=== PATIENT | female | born 1965 | race Caucasian/White ===

== ENCOUNTER → 2018-03-02 15:36 | Outpatient (CLI) | payer OTHER, SELFPAY ==
--- NOTE | 2018-03-02 15:40 | DI.RAD.S_ITS ---
PROCEDURE: XR LUMBAR SPINE 2-3V INDICATIONS: left buttock pain for over 1 month TECHNIQUE: 3 views of the lumbar spine were acquired. COMPARISON: None. FINDINGS: Bones: 5 [id number] vertebrae are present. There is moderate dextroconvex scoliosis. Degenerative disc disease L4-5 and possibly L5-S1. Facet sclerosis L4-5 and L5-S1. No vertebral body compression fractures. No suspicious bony lesions. Sacrum and sacroiliac joints appear maintained. Soft tissues: Overlying bowel gas pattern is normal. No suspicious soft tissue calcifications. IMPRESSION: 1. Scoliosis. 2. Discopathy and facet arthropathy L4-5 and L5-S1. Dictated by: Gordo Greenberg M.D. on 03/02/2018 at 16:07 Approved by: Gordo Greenberg M.D. on 03/02/2018 at 16:10
--- NOTE | 2018-03-02 15:40 | DI.MRI.S_ITS ---
PROCEDURE: MR LUMBAR SPINE WO CON INDICATIONS: left buttock pain TECHNIQUE: Noncontrast sagittal T1 spin echo and T2 fast echo, sagittal STIR, axial T1 and T2 fast spin echo through the lumbar spine. In cases with scoliosis, additional coronal T2 fast spin echo may be performed. COMPARISON: [facility], CR, XR LUMBAR SPINE 2-3V, 03/02/2018, 15:22. FINDINGS: Image quality: Excellent. Alignment and Curvature: 5 lumbar type vertebral wires are present by plain film. Mild rightward curvature of the mid/upper lumbar spine. Bone Marrow: Marrow is of normal overall signal. No acute vertebral body compression fractures. Mild reactive signal within the endplates adjacent to the L4-L5 and L5-S1 intervertebral discs. Spinal Cord: Conus medullaris terminates at the L1-L2 disc space level. Visualized cord demonstrates normal signal and size. There is a small lipoma of the filum terminalis, which does not significantly contribute to canal, nor foraminal stenosis. Paraspinous Soft Tissues: No paravertebral masses. L1-L2: Normal appearance. L2-L3: Normal appearance. L3-L4: Disc desiccation and diffuse disc bulge with small superimposed broad-based left far lateral protrusion. Bilateral facet hypertrophy. Mild canal stenosis. Mild left foraminal stenosis. No right foraminal stenosis. L4-L5: Disc height loss and desiccation, as well as diffuse disc bulge, with superimposed left paracentral protrusion. Bilateral facet hypertrophy. Mild canal stenosis. Moderate right and mild left foraminal stenosis. Mild posterior deviation of the left L5 nerve root within the lateral recess. L5-S1: Disc desiccation and diffuse disc bulge with superimposed right paracentral protrusion. Bilateral facet hypertrophy. Epidural lipomatosis. Mild canal stenosis. Mild right foraminal stenosis. No left foraminal stenosis. IMPRESSION: 1. Multilevel degenerative disc and facet disease. 2. Mild multilevel canal stenoses. 3. Multilevel foraminal stenoses, worst on the right at L4-L5 where there is moderate foraminal stenosis. 4. Mild impingement upon the left L5 nerve root at the L4-L5 disc space level; recommend correlation with clinical symptoms to ascertain relevance of this finding. Dictated by: Franklin De Paz M.D. on 03/02/2018 at 16:19 Approved by: Franklin De Paz M.D. on 03/02/2018 at 16:22
== END ==
PROVIDERS: Family Provider Family Medicine; PCP Family Medicine; Visit Provider Family Medicine
DX: M51.36 Other intervertebral disc degeneration, lumbar region (principal); M47.816 Spondylosis without myelopathy or radiculopathy, lumbar region; M48.061 Spinal stenosis, lumbar region without neurogenic claudication
CPT/HCPCS: 72100; 72148

== ENCOUNTER 2018-04-24 13:57 | Outpatient (CLI) | payer OTHER, SELFPAY ==
[2018-04-24] VITALS (8 sets, daily range): BP systolic 111–136; BP diastolic 70–91; PULSE 61–72; RESP 16–18; TEMP 36.3; O2SAT 99–100
--- NOTE | 2018-04-24 13:58 | DI.RAD.S_ITS ---
PROCEDURE: PAIN L/S TRANSFORAMINAL INJECT INDICATIONS: RADICULOPATHY FINDINGS: Fluoroscopic spot filming was performed to verify placement of spinal needles at the left L4-5 level(s), as labeled on the films. Appropriate location(s) of the needle tip(s) was confirmed by injection of iodinated contrast. IMPRESSION: Successful left L4-5 transforaminal epidural needle tip localization for subsequent steroid injection. Dictated by: Sloan Alfred M.D. on 04/25/2018 at 10:05 Approved by: Sloan Alfred M.D. on 04/25/2018 at 10:06
[2018-04-24] MEDS: methylPREDNISolone acetate 80 MG/ML VIAL INJ (15:23)
[2018-04-24] MEDS: IOPAMIDOL 15 ML VIAL 3 ML INJ (15:23)
[2018-04-24] MEDS: DEXAMETHASONE 10 MG/ML VIAL 20 MG INJ (15:23)
[2018-04-24] MEDS: BUPIVACAINE 0.25% (PF) 30 ML VIAL INJ (15:23)
--- NOTE | 2018-04-24 15:34 | P.PCN_ITS ---
Procedures Date/Time Date of procedure: 04/24/18 Time of procedure: 15:29 General Procedure description: PREOP DIAGNOSIS 1. FORMAINAL STENOSIS WITH LE SYMPTOMS POST OP DIAGNOSIS 1. FORMAINAL STENOSIS WITH LE SYMPTOMS PROCEDURES 1. FLUOROSCOPICALLY GUIDED CONTRAST CONTROLLED TRANSFORAMINAL EPIDURAL STEROID INJECTION - LEFT L4/5 PHYSICIAN: Philip Jacob DO INDICATIONS: Shiela is referred by for treatment of Foraminal Stenosis with Left LE Symptoms FINDINGS Foraminal Nerve Root Compression secondary to disc disease and facet hypertrophy DESCRIPTION OF PROCEDURE: Following denial of allergy and review of potential side effects and complications, including, but not necessarily limited to, infection, allergic reaction, local tissue breakdown, stroke, temporary or permanent nerve injury, paralysis, and possible , the patient indicated that the patient understood and agreed to proceed. An informed consent document was signed by the patient, witnessed by a nurse, and placed in the patient's chart. Additionally, other treatment options including medications, modalities, and physical therapy were reviewed with the patient. After review of previous anaesthesic history and IV conscious sedation the patient was deemed safe to proceed with todays procedure with IV conscious sedation as ASA class II designation. Safety time-out was performed to confirm patient ID, procedure to be performed and site of procedure. IV sedation was accomplished with a combination of 3mg of Versed was administered by the RN after DO order, titrated to patient comfort during the course of the procedure while the patient remained responsive to all verbal commands In the prone position following sterile prep and drape of the lumbar region, the left L4/5 posterior neuroforamen was identified fluoroscopically. The skin was anesthetized via a 25-gauge 1.5-inch needle with 1% lidocaine solution. At this point, a 25-gauge 3.5-inch spinal needle was atraumatically introduced and advanced under fluoroscopic guidance through the posterior left L4/5 neuroforamen to approximately the anterior aspect of the canal. Depth was confirmed on lateral view. Following negative aspiration, injection of approximately 1.5 cc of Isovue 200 under live fluoroscopy in the AP view confirmed excellent flow along the nerve root, into the epidural space without vascular or intrathecal uptake observed Radiological data, including multiple fluoroscopic views of the lumbosacral spine, reveal a spinal needle at the left L4/5 posterior neuroforamen. Subsequent views show flow of contrast material flowing superiorly and inferiorly along the nerve root confirming epidural flow. Subsequently, a test dose of 1.5 cc of 1% lidocaine solution was administered and patient was observed for two minutes for signs or symptoms of complications , including abdominal pain, shortness of breath, bilateral upper or lower extremity weakness, nausea and vomiting, prior to steroid injection. At this point, a total of 3 cc or 20 mg of dexamethasone and 80mg Depo Medrol was injected without incident. The patient tolerated the procedure well the signs or symptoms of complications prior to transfer to the recovery area for further monitoring. She was then transferred to the recovery area where they were observed for an appropriate time after the injection. The patient reported a VAS score of 7 prior to the procedure and a post- procedure VAS of 0. Total Fluoroscopy Time: 20.9 seconds Total Conscious Sedation Time: 24min POST OP INSTRUCTIONS The patient was provided a Pain Log to continue to record their response to the target-specific procedure prior to follow-up visit with their referring physician. Additionally, specific post-injection care instructions and a contact number to our office were provided if concerns arise regarding possible complications associated with the procedure are suspected. Philip Jacob DO Complications: none
[2018-04-24] MEDS: MIDAZOLAM 5 MG/5 ML VIAL IV (15:35)
== END 2018-04-24 16:19 ==
LOC: RAD 13:57
PROVIDERS: PCP Family Medicine; Visit Provider Physical Medicine & Rehabilitation
DX: M47.27 Other spondylosis with radiculopathy, lumbosacral region (principal); M51.16 Intervertebral disc disorders with radiculopathy, lumbar region; M48.061 Spinal stenosis, lumbar region without neurogenic claudication
CPT/HCPCS: 64483; 99152; J1040; J1100; J2250

== ENCOUNTER → 2018-05-01 15:59 | Outpatient (CLI) | payer OTHER, SELFPAY ==
--- NOTE | 2018-05-01 16:01 | DI.RAD.S_ITS ---
PROCEDURE: XR ANKLE LT MIN 3V INDICATIONS: LEFT ANKLE PAIN S/P FALL TECHNIQUE: 3 views of the ankle were acquired. COMPARISON: None. FINDINGS: Bones: There is a minimally displaced, comminuted fracture of the distal fibula. No other fracture. There is likely a bone island within the medial malleolus. Soft tissues: There is marked lateral malleolar soft tissue swelling and a small tibiotalar joint effusion. IMPRESSION: 1. Comminuted, minimally displaced distal fibular fracture with associated soft tissue swelling. 2. Probable medial malleolar bone island. Dictated by: Sophie San M.D. on 05/01/2018 at 17:59 Approved by: Sophie San M.D. on 05/01/2018 at 18:00
== END ==
PROVIDERS: Family Provider Family Medicine; PCP Family Medicine; Visit Provider Family Medicine
DX: S82.832A Other fracture of upper and lower end of left fibula, initial encounter for closed fracture (principal); M25.572 Pain in left ankle and joints of left foot
CPT/HCPCS: 73610

== ENCOUNTER 2018-05-29 13:25 | Outpatient (CLI) | payer OTHER, SELFPAY ==
[2018-05-29] VITALS (12 sets, daily range): BP systolic 81–129; BP diastolic 35–77; PULSE 72–89; RESP 18–20; TEMP 36.2; O2SAT 98–100
--- NOTE | 2018-05-29 13:26 | DI.RAD.S_ITS ---
PROCEDURE: PAIN L/S TRANSFORAMINAL INJECT INDICATIONS: INTERVERTEBRAL DISK DISPLACEMENT FINDINGS: Fluoroscopic spot filming was performed to verify placement of spinal needles at the left L4-5 level(s), as labeled on the films. Appropriate location(s) of the needle tip(s) was confirmed by injection of iodinated contrast. IMPRESSION: Successful left L4-L5 needle tip localization posterior laterally, presumably for epidural steroid injection. Dictated by: Sloan Alfred M.D. on 05/29/2018 at 16:22 Approved by: Sloan Alfred M.D. on 05/29/2018 at 16:23
[2018-05-29] MEDS: MIDAZOLAM 5 MG/5 ML VIAL IV (14:25)
[2018-05-29] MEDS: BUPIVACAINE 0.25% (PF) VIAL 2 ML INJ (14:33)
[2018-05-29] MEDS: IOPAMIDOL 15 ML VIAL 3 ML INJ (14:33)
[2018-05-29] MEDS: methylPREDNISolone acetate 80 MG/ML VIAL INJ (14:34)
[2018-05-29] MEDS: DEXAMETHASONE 10 MG/ML VIAL 20 MG INJ (14:34)
--- NOTE | 2018-05-29 14:42 | P.PCN_ITS ---
Procedures Date/Time Date of procedure: 05/29/18 Time of procedure: 14:42 General Procedure description: PREOP DIAGNOSIS 1. FORMAINAL STENOSIS WITH LE SYMPTOMS POST OP DIAGNOSIS 1. FORMAINAL STENOSIS WITH LE SYMPTOMS PROCEDURES 1. FLUOROSCOPICALLY GUIDED CONTRAST CONTROLLED TRANSFORAMINAL EPIDURAL STEROID INJECTION - LEFT L4/5 PHYSICIAN: Philip Jacob DO INDICATIONS: Shiela is referred by for treatment of Foraminal Stenosis with Left LE Symptoms FINDINGS Foraminal Nerve Root Compression secondary to disc disease and facet hypertrophy DESCRIPTION OF PROCEDURE: Following denial of allergy and review of potential side effects and complications, including, but not necessarily limited to, infection, allergic reaction, local tissue breakdown, stroke, temporary or permanent nerve injury, paralysis, and possible , the patient indicated that the patient understood and agreed to proceed. An informed consent document was signed by the patient, witnessed by a nurse, and placed in the patient's chart. Additionally, other treatment options including medications, modalities, and physical therapy were reviewed with the patient. After review of previous anaesthesic history and IV conscious sedation the patient was deemed safe to proceed with todays procedure with IV conscious sedation as ASA class II designation. Safety time-out was performed to confirm patient ID, procedure to be performed and site of procedure. IV sedation was accomplished with a combination of 3mg of Versed was administered by the RN after DO order, titrated to patient comfort during the course of the procedure while the patient remained responsive to all verbal commands In the prone position following sterile prep and drape of the lumbar region, the left L4/5 posterior neuroforamen was identified fluoroscopically. The skin was anesthetized via a 25-gauge 1.5-inch needle with 1% lidocaine solution. At this point, a 25-gauge 3.5-inch spinal needle was atraumatically introduced and advanced under fluoroscopic guidance through the posterior left L4/5 neuroforamen to approximately the anterior aspect of the canal. Depth was confirmed on lateral view. Following negative aspiration, injection of approximately 1.5 cc of Isovue 200 under live fluoroscopy in the AP view confirmed excellent flow along the nerve root, into the epidural space without vascular or intrathecal uptake observed Radiological data, including multiple fluoroscopic views of the lumbosacral spine, reveal a spinal needle at the left L4/5 posterior neuroforamen. Subsequent views show flow of contrast material flowing superiorly and inferiorly along the nerve root confirming epidural flow. Subsequently, a test dose of 1.5 cc of 1% lidocaine solution was administered and patient was observed for two minutes for signs or symptoms of complications , including abdominal pain, shortness of breath, bilateral upper or lower extremity weakness, nausea and vomiting, prior to steroid injection. At this point, a total of 3 cc or 20 mg of dexamethasone and 80mg Depo Medrol was injected without incident. The patient tolerated the procedure well the signs or symptoms of complications prior to transfer to the recovery area for further monitoring. She was then transferred to the recovery area where they were observed for an appropriate time after the injection. The patient reported a VAS score of 7 prior to the procedure and a post- procedure VAS of 0. Total Fluoroscopy Time: 20.9 seconds Total Conscious Sedation Time: 24min POST OP INSTRUCTIONS The patient was provided a Pain Log to continue to record their response to the target-specific procedure prior to follow-up visit with their referring physician. Additionally, specific post-injection care instructions and a contact number to our office were provided if concerns arise regarding possible complications associated with the procedure are suspected. Philip Jacob DO Complications: none
== END 2018-05-29 15:18 ==
LOC: RAD 13:25
PROVIDERS: Family Provider Family Medicine; PCP Family Medicine; Visit Provider Physical Medicine & Rehabilitation
DX: M48.061 Spinal stenosis, lumbar region without neurogenic claudication (principal); M51.16 Intervertebral disc disorders with radiculopathy, lumbar region; M51.26 Other intervertebral disc displacement, lumbar region; M47.27 Other spondylosis with radiculopathy, lumbosacral region
CPT/HCPCS: 64483; 99152; J1040; J1100; J2250

== ENCOUNTER → 2018-05-29 15:20 | Outpatient (CLI) | payer OTHER, SELFPAY ==
--- NOTE | 2018-05-29 15:21 | DI.MRI.S_ITS ---
PROCEDURE: MR ANKLE LT WO CON INDICATIONS: Left ankle fracture TECHNIQUE: Noncontrast sagittal T1 spin echo and T2 fast spin echo with fat saturation, axial proton density fast spin echo and T2 fast spin echo with fat saturation, coronal T1 spin echo and T2 fast spin echo with fat saturation through the ankle/hindfoot. COMPARISON: [facility], CR, XR ANKLE LT MIN 3V, 05/01/2018, 16:02. FINDINGS: Image quality: Excellent. Bones and joints: There is a mildly displaced fracture of the lateral malleolus inferiorly. Fracture line demonstrates persistent fluid signal with mild edema along the fracture margins. No hindfoot coalitions. No osteochondral injuries of the talar dome. There is a small to moderate size tibiotalar joint effusion. Medial structures: The posterior tibialis, flexor digitorum longus, and flexor hallucis longus tendons are intact. The posterior tibial neurovascular bundle appears normal within the tarsal tunnel, without extrinsic mass effect. The deltoid and spring ligaments appear intact. Lateral structures: The anterior talofibular, calcaneofibular, and posterior talofibular ligaments appear slightly thickened and intermediate in signal intensity with periligamentous edema consistent with sequelae of moderate sprains. There is mild adjacent subcutaneous edema over the lateral malleolus. More superiorly, the anterior and posterior tibiofibular ligaments appear intact, as is the intermalleolar ligament. The tibiofibular syndesmosis is normal in width at 2 mm or less. The peroneus longus and brevis tendons demonstrate normal location and morphology with a small amount of tenosynovial fluid and mild peritendinous edema. Adjacent bony peroneal tubercle and retrotrochlear prominence are normal in size. The sinus tarsi demonstrates preserved fatty signal. There is a lobulated cyst compatible with a ganglion cyst anterolateral to the sinus Tarsi measuring up to 1.2 cm. The calcaneonavicular and calcaneocuboid components of the bifurcate ligament appear intact. The dorsal calcaneocuboid ligament appears intact. Anterior structures: The tibialis anterior, extensor hallucis longus, and extensor digitorum longus tendons appear intact. The dorsal talonavicular ligament appears intact. Posterior and plantar structures: Achilles tendon is intact. There is thickening of the central cord of the plantar fascia consistent with sequelae of plantar fasciitis. No abductor digiti quinti muscle atrophy to suggest Negron neuropathy. IMPRESSION: 1. Mildly displaced fracture of the inferior lateral malleolus. 2. Moderate sprains of the lateral ligaments is described. 3. Small to moderate-sized tibiotalar joint effusion. Dictated by: Daren Rivera M.D. on 05/29/2018 at 16:59 Approved by: Daren Rivera M.D. on 05/29/2018 at 17:03
== END ==
PROVIDERS: Family Provider Family Medicine; PCP Family Medicine; Visit Provider Family Medicine
DX: S82.62XA Displaced fracture of lateral malleolus of left fibula, initial encounter for closed fracture (principal); M25.472 Effusion, left ankle
CPT/HCPCS: 73721

== ENCOUNTER → 2019-10-14 18:39 | Outpatient (CLI) | payer OTHER, SELFPAY ==
--- NOTE | 2019-10-14 18:43 | DI.RAD.S_ITS ---
PROCEDURE: XR FOREARM RT 2V INDICATIONS: px radial aspect of wrist, elbow, and forearm, FOOSH TECHNIQUE: 2 views of the forearm were acquired. COMPARISON: None. FINDINGS: Bones: No fractures or dislocations. No suspicious bony lesions. Soft tissues: No suspicious soft tissue calcifications or masses. IMPRESSION: No evidence acute bony abnormality of the left forearm Dictated by: Jose Luis Camacho M.D. on 10/14/2019 at 19:22 Approved by: Jose Luis Camacho M.D. on 10/14/2019 at 19:23
--- NOTE | 2019-10-14 18:43 | DI.RAD.S_ITS ---
PROCEDURE: XR ELBOW LT MIN 3V INDICATIONS: px radial aspect of wrist, elbow, and forearm, FOOSH TECHNIQUE: 3 views of the elbow were acquired. COMPARISON: None. FINDINGS: Bones: Subtle radial neck fracture. No dislocation. No other fractures. No suspicious bony lesions. Soft tissues: Positive elbow joint effusion. No suspicious soft tissue calcifications. IMPRESSION: Subtle nondisplaced radial neck fracture. Associated elbow joint effusion. Dictated by: Jose Luis Camacho M.D. on 10/14/2019 at 19:21 Approved by: Jose Luis Camacho M.D. on 10/14/2019 at 19:22
--- NOTE | 2019-10-14 18:43 | DI.RAD.S_ITS ---
PROCEDURE: XR WRIST LT MIN 3V INDICATIONS: px radial aspect of wrist, elbow, and forearm, FOOSH TECHNIQUE: 4 views of the wrist were acquired. COMPARISON: None. FINDINGS: Bones: No fractures or dislocations. No suspicious bony lesions. Scaphoid view: Scaphoid intact Soft tissues: No suspicious soft tissue calcifications. IMPRESSION: No evidence acute bony abnormality of the left wrist. If clinical suspicion and/or symptoms persist, further assessment with repeat plain films, or advanced imaging (e.g., CT, MRI, or bone scan) may be helpful for further assessment. Dictated by: Jose Luis Camacho M.D. on 10/14/2019 at 19:20 Approved by: Jose Luis Camacho M.D. on 10/14/2019 at 19:21
== END ==
PROVIDERS: Family Provider Family Medicine; PCP Family Medicine; Visit Provider Nurse Practitioner
DX: M79.602 Pain in left arm (principal); S52.135A Nondisplaced fracture of neck of left radius, initial encounter for closed fracture; M25.422 Effusion, left elbow; X58.XXXA Exposure to other specified factors, initial encounter
CPT/HCPCS: 73080; 73090; 73110

== ENCOUNTER → 2020-04-24 15:13 | Outpatient (CLI) | payer OTHER, SELFPAY ==
--- NOTE | 2020-04-24 15:14 | DI.RAD.S_ITS ---
PROCEDURE: XR CHEST 2V INDICATIONS: Thoracic pain, r/o lung etiology TECHNIQUE: 2 views of the chest were acquired. COMPARISON: None. FINDINGS: Surgical changes and devices: None. Lungs and pleura: Lungs are clear. No pleural effusions or pneumothorax. Mediastinum: Mediastinal contours are normal. Heart size is normal. Bones and chest wall: No suspicious bony abnormalities. Mild degenerative changes of the thoracic spine are not well characterized. Soft tissues appear unremarkable. IMPRESSION: No acute cardiopulmonary process is evident. Dictated by: Alex Suárez M.D. on 04/24/2020 at 15:01 Approved by: Alex Suárez M.D. on 04/24/2020 at 15:02
== END ==
PROVIDERS: Family Provider Family Medicine; PCP Family Medicine; Referring Provider Family Medicine; Visit Provider Family Medicine
DX: M54.6 Pain in thoracic spine (principal)
CPT/HCPCS: 71046

== ENCOUNTER → 2020-10-14 09:07 | Outpatient (CLI) | payer OTHER, SELFPAY ==
[2020-10-14 10:02] LABS: Alanine Aminotransferase 16 IU/L (<35); Albumin 4.3 g/dL (3.5-5.0); Albumin Globulin Ratio 1.3 (1.0-2.8); Alkaline Phosphatase 82 U/L (38-126); Aspartate Aminotransferase 26 IU/L (14-36); BUN Creatinine Ratio 18.9 (6-22); Bilirubin Total 0.7 mg/dL (0.2-1.3); Blood Urea Nitrogen 14 mg/dL (7-17); Calcium 9.3 mg/dL (8.4-10.2); Carbon Dioxide 29 mmol/L (22-32); Chloride 103 mmol/L (98-107); Estimated Glomerular Filt Rate > 60.0 mL/min (>60); Globulin 3.3 g/dL (1.7-4.1); Glucose 84 mg/dL (70-100); HEMOLYSIS 20 (0-50); Potassium 4.4 mmol/L (3.4-5.1); Sodium 137 mmol/L (137-145); Total Protein 7.6 g/dL (6.3-8.2)
== END ==
PROVIDERS: Family Provider Family Medicine; PCP Family Medicine; Referring Provider Family Medicine; Visit Provider Family Medicine
DX: R25.3 Fasciculation (principal)
CPT/HCPCS: 36415; 80053; 83735

== ENCOUNTER → 2021-01-07 16:28 | Outpatient (CLI) | payer OTHER, SELFPAY ==
[2021-01-07] MEDS: COVID-19 VACC #1, MRNA(MOD) 100 MCG/0.5 ML VIAL IM (16:32)
== END ==
PROVIDERS: Family Provider Family Medicine; PCP Family Medicine; Visit Provider Internal Medicine
DX: Z23 Encounter for immunization (principal)
CPT/HCPCS: 0011A; 91301

== ENCOUNTER → 2021-02-04 15:06 | Outpatient (CLI) | payer OTHER, SELFPAY ==
[2021-02-04] MEDS: COVID-19 VACC #2, MRNA(MOD) 100 MCG/0.5 ML VIAL IM (15:11)
== END ==
PROVIDERS: Family Provider Family Medicine; PCP Family Medicine; Visit Provider Internal Medicine
DX: Z23 Encounter for immunization (principal)
CPT/HCPCS: 0012A; 91301

== ENCOUNTER → 2021-05-20 15:14 | Outpatient (CLI) | payer OTHER, SELFPAY | PROVIDERS: Family Provider Family Medicine; PCP Family Medicine; Referring Provider Family Medicine; Visit Provider Family Medicine | DX: M85.851 Other specified disorders of bone density and structure, right thigh (principal); Z78.0 Asymptomatic menopausal state; Z82.62 Family history of osteoporosis | CPT/HCPCS: 77080 ==

== ENCOUNTER → 2021-06-15 15:16 | Outpatient (CLI) | payer OTHER, SELFPAY ==
--- NOTE | 2021-06-15 15:17 | DI.MG.S_ITS ---
BILATERAL DIGITAL SCREENING MAMMOGRAM 3D/2D WITH CAD: 06/15/2021 CLINICAL: Routine screening. Comparison is made to exams dated: 12/05/2014 mammogram and 11/09/2009 mammogram - [facility]. The tissue of both breasts is heterogeneously dense. This may lower the sensitivity of mammography. Current study was also evaluated with a Computer Aided Detection (CAD) system. There are grouped fine calcifications in the right breast at 12 o'clock middle depth. These are increased in number. There are regional fine calcifications in the left breast at 1 o'clock middle depth. These are increased in number. No other significant masses or calcifications are seen in either breast. IMPRESSION: INCOMPLETE: NEEDS ADDITIONAL IMAGING EVALUATION The grouped fine calcifications in the right breast at 12 o'clock middle depth are indeterminate. The regional fine calcifications in the left breast at 1 o'clock middle depth are indeterminate. This could be due to a benign process such as fibrous mastopathy or fibrocystic change given bilaterally and diffuse/scattered nature. However, DCIS could have this appearance. Additional views are recommended. This exam was interpreted at Station ID: [id number]. NOTE: For mammograms, a report in lay terms will be sent to the patient. Approximately 15% of breast malignancies will not be visualized mammographically. In the management of a palpable breast mass, a negative mammogram must not discourage biopsy of a clinically suspicious lesion. Electronically Signed By: Herbert Morrissey M.D. [facility]/:06/17/2021 16:39:19 letter sent: Additional Imaging Needed ACR BI-RADS Category 0: Incomplete [id number]
== END ==
PROVIDERS: Family Provider Family Medicine; PCP Family Medicine; Referring Provider Family Medicine; Visit Provider Family Medicine
DX: Z12.31 Encounter for screening mammogram for malignant neoplasm of breast (principal)
CPT/HCPCS: 77063; 77067

== ENCOUNTER → 2021-06-16 10:36 | Outpatient (CLI) | payer OTHER, SELFPAY ==
[2021-06-16 11:24] LABS: Add Manual Diff / Slide Review NO; Basophils Absolute Auto 0 /uL (0-100); Basophils Percent Auto 0.9 % (0-2); Eosinophils Absolute Auto 100 /uL (0-450); Eosinophils Percent Auto 2.1 % (2-4); Hematocrit 42.9 % (36-46); Lymphocytes Absolute Auto 1200 /uL (1100-4500); Lymphocytes Percent Auto 24.2 % (25-40); Mean Corpuscular HGB Conc 32.7 % (30-36); Mean Corpuscular Hemoglobin 30.6 PG (26-34); Mean Corpuscular Volume 93.7 fL (80-100); Monocytes Absolute Auto 400 /uL (0-900); Monocytes Percent Auto 7.9 % (3-14); Neutrophils Absolute Auto 3300 /uL (1500-7000); Neutrophils Percent Auto 64.9 % (50-75); Platelet Count 210 X10^3/uL (150-400); Red Blood Cell Count 4.58 X10^6/uL (4.0-5.2); Red Cell Distribution Width 12.8 % (11.6-14.8); White Blood Cell Count 5.1 X10^3/uL (4.5-11.0)
[2021-06-16 11:34] LABS: Cholesterol 220 mg/dL (140-199); HDL Cholesterol 70 mg/dL (40-60); LDL Cholesterol Calculated 127 mg/dL (<100); Triglycerides 113 mg/dL (35-150)
[2021-06-16 12:21] LABS: TSH w/ Reflex to FT4 1.93 uIU/mL (0.47-4.68)
== END ==
PROVIDERS: Family Provider Family Medicine; PCP Family Medicine; Referring Provider Family Medicine; Visit Provider Family Medicine
DX: Z78.0 Asymptomatic menopausal state (principal); G43.909 Migraine, unspecified, not intractable, without status migrainosus; R00.1 Bradycardia, unspecified
CPT/HCPCS: 36415; 80061; 84443; 85025

== ENCOUNTER 2021-07-30 15:12 | Emergency (ER) | payer OTHER, SELFPAY ==
[2021-07-30] VITALS (7 sets, daily range): BP systolic 130–150; BP diastolic 59–78; PULSE 48–58; RESP 16–18; TEMP 36.6; O2SAT 98–100; BMI 25.4
--- NOTE | 2021-07-30 19:13 | ED.GENADULT ---
HPI - General Adult General Chief complaint: Eye Problems Stated complaint: SUDDEN FLASHING AND FLOATERS LEFT EYE Time Seen by Provider: 07/30/21 15:19 Source: patient Mode of arrival: Ambulatory Limitations: no limitations History of Present Illness HPI narrative: Otherwise healthy 56-year-old woman who complains of 2 days of flashing in the pre left peripheral vision of the left eye only. In the last 24 hours she has noticed some increasing floaters in feels like there is a small hair going down the middle of the visual field left side only. She has a low-grade headache today but notes she did during her usual amount of caffeine. She is not having any eye pain and does not note any visual acuity changes. She describes no trauma to the eye. She does have a history of migraine a but has not had any issues with that recently Related Data Home Medications Medication Instructions Recorded Confirmed ondansetron HCl 4 mg tablet 4 mg PO Q8H 10/14/20 06/16/21 Previous Rx's Medication Instructions Recorded lorazepam 1 mg tablet (Ativan) 1 mg PO BID PRN #30 tab 06/16/21 sumatriptan succinate 50 mg tablet 50 mg PO ONCE #30 tab 06/16/21 (Imitrex) fluoxetine 20 mg capsule 20 mg PO DAILY #60 cap 07/16/21 Allergies Allergy/AdvReac Type Severity Reaction Status Date / Time No Known Drug Allergies Allergy Verified 06/16/21 11:05 Review of Systems Review of Systems Narrative: Pertinent positive and negative findings as per HPI Remainder of review of systems is otherwise unremarkable for Constitutional: Fevers, chills, weakness ENT: No sore throat, neck pain, ear pain CV: Chest pain, palpitations, Respiratory: Cough, wheeze, dyspnea GI: Nausea, vomiting, diarrhea, Patient History Medical History Abnormal Pap smear of cervix (~1989) Anxiety Breast calcification, left Breast calcification, right Chicken pox (~1979) Depression Family history of osteoporosis (12/19/14) Fasciculations Headache Kidney stones (~2001) Left fibular fracture Migraine headache Mumps Osteoarthritis Osteopenia Postmenopausal status (12/15/17) Rubella Surgical History Anesthesia Bakers cyst (~1974) History of lithotripsy (~1999) Family History Father Age: 81 Glaucoma Grandfather Hypertension High cholesterol RA (rheumatoid arthritis) Vasculitis Grandmother High cholesterol Osteoporosis Sister Age: 54 Melanoma Social History Smoking Status: Never smoker Smoking Status: Never smoker alcohol intake frequency: a few times a month Substance Use Type: does not use Exam Narrative Exam Narrative: Healthy-appearing 56-year-old woman no acute distress visual acuity bilaterally 20/25 left 20/25 right 20/25 Initial Vital Signs Initial Vital Signs: Vital Signs Temperature 97.9 F 07/30/21 15:22 Pulse Rate 58 L 07/30/21 15:22 Respiratory Rate 16 07/30/21 15:22 Blood Pressure 130/59 L 07/30/21 15:22 Pulse Oximetry 98 07/30/21 15:22 Eyes General: appearance normal, both eyes and all related structures Visual Chavez: normal visual chavez by confrontation Alignment and Position: alignment normal and position normal Periorbital: periorbital findings normal Eyelids: eyelids normal Conjunctivae: conjunctivae normal Sclera: sclerae normal Pupils: PERRL and accommodation normal EOM: EOM intact bilaterally Direct ophthalmoscopy: normal light reflex (Able to appreciate blood vessels but not macula on the unaffected right sourav) and other (Left, affected side, positive red reflex I am unable to appreciate vessels ) Other: Bedside ultrasound of the eye: Normal anterior chamber and posterior chamber. No evidence of retinal detachment. There is some minor increased fullness extreme lateral edge left retinal attachment. Did Course Vital Signs Vital signs: Vital Signs - 8 hr 07/30/21 15:22 07/30/21 18:50 07/30/21 18:51 Temperature 97.9 F Pulse Rate 58 L 52 L 52 L Respiratory Rate 16 18 Blood Pressure 130/59 L 150/68 H 150/68 H Pulse Oximetry 98 98 98 07/30/21 19:00 07/30/21 19:01 07/30/21 19:09 Temperature Pulse Rate 49 L 48 L 53 L Respiratory Rate Blood Pressure 144/78 H 139/74 Pulse Oximetry 100 100 100 07/30/21 19:30 Temperature Pulse Rate 48 L Respiratory Rate Blood Pressure 139/71 Pulse Oximetry 98 Medical Decision Making MDM Narrative Medical decision making narrative: 56-year-old woman presents with flashing and floaters left lateral visual field without pain or visual change.? Given the history and the bedside ultrasound I suspect she has a small posterior vitreal detachment lateral edge of the left retina.? No evidence of infection, acute angle glaucoma, acute vitreous hemorrhage and nothing in presentation or exam to suggest an intra-ocular foreign body.? On Monday evening access to ophthalmology consultation is challenging from the emergency department.? I believe she is safe to wait till Monday morning to contact [facility] surgeons for further evaluation.? Should she have additional symptoms or acute visual changes recommended that she call Ophthalmology directly to see if she may have more luck in contacting physician who might be willing to see her this weekend. Discharge Plan Departure Patient Disposition: Home Clinical Impression: Posterior vitreous detachment of left eye Activity Restrictions/Additional Instructions: Thank you for coming in today Your symptoms in exam are entirely consistent with the posterior vitreous detachment. Without any acute visual changes I believe it is safe to wait until Monday to be seen by Ophthalmology. On Monday please call [facility] at [phone] If you have worsening symptoms, pain or loss of vision you need to return to the emergency department Prescriptions: No Action fluoxetine 20 mg capsule 20 mg PO DAILY Qty: 60 RF: 0 ondansetron HCl 4 mg tablet 4 mg PO Q8H RF: 0 lorazepam [Ativan] 1 mg tablet 1 mg PO BID PRN (Reason: anxiety) Qty: 30 RF: 0 sumatriptan succinate [Imitrex] 50 mg tablet 50 mg PO ONCE Qty: 30 RF: 1 Referrals: Gordo Celestin MD [Primary Care Provider] -
== END 2021-07-30 19:58 | disposition home or self-care (01) ==
PROVIDERS: Emergency Provider Emergency Medicine; Family Provider Family Medicine; PCP Family Medicine; Referring Provider Family Medicine
DX: H43.812 Vitreous degeneration, left eye (principal)
CPT/HCPCS: 99281; 99282

== ENCOUNTER → 2022-09-08 14:11 | Outpatient (CLI) | payer OTHER, SELFPAY ==
--- NOTE | 2022-09-08 14:13 | DI.RAD.S_ITS ---
PROCEDURE: XR SHOULDER LT MIN 2V INDICATIONS: left arm nerve pain TECHNIQUE: 3 views of the shoulder were acquired. COMPARISON: [facility], XR CHEST 2V, 04/24/2020, 14:17. FINDINGS: Bones: No fractures or dislocations. No suspicious bony lesions. Visualized ribs appear intact. Mild joint narrowing with periarticular osteophyte formation of the acromioclavicular joint. Soft tissues: No suspicious soft tissue calcifications. IMPRESSION: 1. Mild acromioclavicular joint degeneration. Dictated by: Garrick ALBERTS Interpreted: Yecenia Stewart MD on 09/08/2022 at 14:39 Transcribed by: DONALDO on 09/08/2022 at 14:39 Approved by: Richy Oconnor M.D. on 09/12/2022 at 12:24
--- NOTE | 2022-09-08 14:13 | DI.RAD.S_ITS ---
PROCEDURE: XR CERVICAL SPINE 2V OR 3V INDICATIONS: left arm nerve pain TECHNIQUE: 3 view(s) of the cervical spine were acquired. COMPARISON: None. FINDINGS: Bones: No fractures or dislocations to the T1 level. The lateral masses of C1 appear intact on the odontoid view. No suspicious bony lesions. Loss of lordosis which could be related to muscle spasm, rigidity or simply positional. Soft tissues: No prevertebral soft tissue swelling. IMPRESSION: 1. Loss of lordosis; otherwise normal C-spine. Dictated by: Garrick Quinones [facility] Interpreted: Yecenia Stewart MD on 09/08/2022 at 14:56 Transcribed by: DONALDO on 09/08/2022 at 14:56 Approved by: Richy Oconnor M.D. on 09/12/2022 at 12:24
== END ==
PROVIDERS: Family Provider Family Medicine; PCP Family Medicine; Referring Provider Family Medicine; Visit Provider Family Medicine
DX: M19.012 Primary osteoarthritis, left shoulder (principal); M79.602 Pain in left arm; R20.0 Anesthesia of skin; R20.2 Paresthesia of skin
CPT/HCPCS: 72040; 73030

== ENCOUNTER → 2024-01-24 10:47 | Outpatient (CLI) | payer OTHER, SELFPAY ==
[2024-01-24 12:26] LABS: Add Manual Diff / Slide Review NO; Basophils Absolute Auto 0 /uL (0-100); Basophils Percent Auto 0.8 % (0-2); Eosinophils Absolute Auto 100 /uL (0-450); Eosinophils Percent Auto 2.3 % (2-4); Hematocrit 42.4 % (36-46); Hemoglobin 14.2 g/dL (12.0-16.0); Lymphocytes Absolute Auto 1600 /uL (1100-4500); Lymphocytes Percent Auto 25.9 % (25-40); Mean Corpuscular HGB Conc 33.5 % (30-36); Mean Corpuscular Hemoglobin 30.9 PG (26-34); Mean Corpuscular Volume 92.1 fL (80-100); Monocytes Absolute Auto 500 /uL (0-900); Monocytes Percent Auto 7.4 % (3-14); Neutrophils Absolute Auto 3900 /uL (1500-7000); Neutrophils Percent Auto 63.6 % (50-75); Platelet Count 259 X10^3/uL (150-400); Red Cell Distribution Width 13.7 % (11.6-14.8); White Blood Cell Count 6.1 X10^3/uL (4.5-11.0)
[2024-01-24 12:39] LABS: Alanine Aminotransferase 13 IU/L (<35); Albumin 4.5 g/dL (3.5-5.0); Albumin Globulin Ratio 1.5 (1.0-2.8); Alkaline Phosphatase 65 U/L (38-126); Aspartate Aminotransferase 24 IU/L (14-36); BUN Creatinine Ratio 14.7 (6-22); Bilirubin Total 0.6 mg/dL (0.2-1.3); Blood Urea Nitrogen 10 mg/dL (7-17); Calcium 9.3 mg/dL (8.4-10.2); Carbon Dioxide 29 mmol/L (22-32); Chloride 103 mmol/L (98-107); Cholesterol 192 mg/dL (140-199); Estimated Glomerular Filt Rate > 60 mL/min (>60); Globulin 3.1 g/dL (1.7-4.1); Glucose 86 mg/dL (70-100); HDL Cholesterol 52 mg/dL (40-60); HEMOLYSIS < 15 (0-50); LDL Cholesterol Calculated 111 mg/dL (<100); Potassium 3.6 mmol/L (3.4-5.1); Sodium 139 mmol/L (137-145); Total Protein 7.6 g/dL (6.3-8.2); Triglycerides 144 mg/dL (35-150)
[2024-01-24 13:08] LABS: TSH w/ Reflex to FT4 1.65 uIU/mL (0.47-4.68)
[2024-01-24 16:50] LABS: Vitamin D 25 Hydroxy (D3) 29.6 ng/mL (30.0-100.0)
[2024-01-25 09:28] LABS: Apolipoprotein B 84 mg/dL (<90)
== END ==
PROVIDERS: Family Provider Family Medicine; PCP Family Medicine; Referring Provider Family Medicine; Visit Provider Family Medicine
DX: Z00.00 Encounter for general adult medical examination without abnormal findings (principal)
CPT/HCPCS: 36415; 80053; 80061; 82172; 82306; 84443; 85025

== ENCOUNTER → 2024-02-26 16:04 | Outpatient (CLI) | payer OTHER, SELFPAY ==
--- NOTE | 2024-02-26 16:05 | DI.RAD.S_ITS ---
PROCEDURE: XR SHOULDER LT MIN 2V INDICATIONS: left shoulder pain TECHNIQUE: 3 views of the shoulder were acquired. COMPARISON: [facility], , XR SHOULDER LT MIN 2V, 09/08/2022, 14:13. FINDINGS: Bones: No fractures or dislocations. No suspicious bony lesions. Visualized ribs appear intact. Mild AC hypertrophy Soft tissues: No suspicious soft tissue calcifications. IMPRESSION: Mild AC osteoarthritis, stable Approved by: Jerod Bridges M.D. on 02/27/2024 at 17:21
== END ==
PROVIDERS: Family Provider Family Medicine; PCP Family Medicine; Referring Provider Family Medicine; Visit Provider Family Medicine
DX: M19.012 Primary osteoarthritis, left shoulder (principal); M25.512 Pain in left shoulder
CPT/HCPCS: 73030

== ENCOUNTER → 2024-04-12 14:22 | Outpatient (CLI) | payer OTHER, SELFPAY ==
--- NOTE | 2024-04-12 14:24 | DI.RAD.S_ITS ---
PROCEDURE: XR CERVICAL SPINE 2V OR 3V INDICATIONS: LEFT SHOULDER PAIN TECHNIQUE: 3 view(s) of the cervical spine were acquired. COMPARISON: None. FINDINGS: Bones: No fractures or dislocations to the T1 level. The lateral masses of C1 appear intact on the odontoid view. Mild multilevel disc height loss extending from C4-C5 to C6-C7. Mild dextroconvex curvature of the cervical spine which may be positional. No suspicious bony lesions. Soft tissues: No prevertebral soft tissue swelling. Visualized lung apices are clear. IMPRESSION: 1. No displaced fracture or traumatic subluxation. 2. Mild multilevel disc height loss. Dictated by: George Rodriguez M.D. on 04/13/2024 at 10:17 Approved by: George Rodriguez M.D. on 04/13/2024 at 10:18
--- NOTE | 2024-04-12 14:24 | DI.RAD.S_ITS ---
PROCEDURE: XR THORACIC SPINE 3V INDICATIONS: LEFT shoulder pain TECHNIQUE: 2 views of the thoracic spine were acquired. COMPARISON: None. FINDINGS: Bones: No fractures or dislocations. No suspicious bony lesions. 12 pairs of ribs are noted, and appear intact where visualized. Mild multilevel degenerative changes with osteophytosis, disc height loss and facet arthropathy. Mild dextroconvex curvature with apex at T8. Soft tissues: No paravertebral stripe thickening. Visualized lungs are clear. IMPRESSION: 1. No acute bony abnormality. 2. Mild multilevel degenerative changes of the spine. Dictated by: George Rodriguez M.D. on 04/13/2024 at 10:14 Approved by: George Rodriguez M.D. on 04/13/2024 at 10:15
--- NOTE | 2024-04-12 14:24 | DI.RAD.S_ITS ---
PROCEDURE: XR SCAPULA LT INDICATIONS: LEFT shoulder pain TECHNIQUE: 2 views of the scapula were acquired. COMPARISON: [facility], CR, XR SHOULDER LT MIN 2V, 02/26/2024, 16:09. FINDINGS: Bones: No fractures or dislocations. No suspicious bony lesions. Visualized ribs appear intact. Soft tissues: Overlying soft tissues appear normal. Visualized left lung is clear. IMPRESSION: No acute bony abnormality. If clinical symptoms persist, consider repeat radiograph in 10-14 days versus cross-sectional imaging. Dictated by: George Rodriguez M.D. on 04/13/2024 at 10:15 Approved by: George Rodriguez M.D. on 04/13/2024 at 10:17
== END ==
PROVIDERS: Family Provider Family Medicine; PCP Family Medicine; Referring Provider Family Medicine; Visit Provider Family Medicine
DX: M47.814 Spondylosis without myelopathy or radiculopathy, thoracic region (principal); M25.512 Pain in left shoulder
CPT/HCPCS: 72040; 72072; 73010

== ENCOUNTER → 2024-08-30 10:49 | Outpatient (CLI) | payer BC, SELFPAY ==
--- NOTE | 2024-08-30 10:50 | DI.RAD.S_ITS ---
PROCEDURE: XR DEXA AXIAL SKELETON INDICATIONS: postmenopausal, osteopenia COMPARISON: [facility], [place], XR DEXA AXIAL SKELETON, 05/20/2021, 15:40. FINDINGS: Lumbar Spine: Bone mineral density 0.804 g/cm2, T score -2.2. Left Hip: Bone mineral density 0.742 g/cm2, T score -1.6. Left Femoral Neck: Bone mineral density 0.672 g/cm2, T score -1.6. Right Hip: Bone mineral density is 0.696 g/cm2, T score -2.0. Right Femoral Neck: Bone mineral density 0.657 g/cm2, T score -1.7. Fracture Risk Calculation (when applicable): 10-year fracture risk of a major osteoporotic fracture 7.9 percent and of a hip fracture 0.8 percent. (T score greater or equal to -1.0 to: NORMAL) (T score from -1.1 to -2.4: OSTEOPENIA) (T score less than or equal to -2.5: OSTEOPOROSIS) IMPRESSION: Osteopenia. Follow-up guidelines as follows: Osteoporosis: Consider a repeat DEXA and Vertebral Fracture Assessment (VFA) exam in 2 years or sooner if medically necessary, to reassess this patient's status. Osteopenia: Consider a repeat DEXA in 2-3 years to reassess this patient's status, or if there is a new clinical indication. Normal: Consider a repeat DEXA in 5 years or sooner, or if there is a new clinical indication. All treatment decisions require clinical judgment and consideration of individual patient factors, including patient preferences, comorbidities, previous drug use, risk factors not captured in the FRAX model (e.g., frailty, falls, vitamin D deficiency, increased bone turnover, interval significant decline in bone density ) and possible under- or over-estimation of fracture risk by FRAX. In addition, the NOF Guide recommends that FDA-approved medical therapies be considered in postmenopausal women and men age >= 50 years with a: * Hip or vertebral (clinical or morphometric) fracture * T-score of <=-2.5 at the spine or hip * Ten-year fracture probability by FRAX of >= 3% for hip fracture or >=20% for major osteoporotic fracture. People with diagnosed cases of osteoporosis or at high risk for fracture should have regular bone mineral density tests. For patients eligible for Medicare, routine testing is allowed once every 2 years. The testing frequency can be increased to one year for patients who have rapidly progressing disease, those who are receiving or discontinuing medical therapy to restore bone mass, or have additional risk factors. Dictated by: Herbert Morrissey M.D. on 08/31/2024 at 11:57 Approved by: Herbert Morrissey M.D. on 08/31/2024 at 11:58
== END ==
LOC: RAD 10:50
PROVIDERS: Family Provider Family Medicine; PCP Family Medicine; Referring Provider Family Medicine; Visit Provider Family Medicine
DX: M85.89 Other specified disorders of bone density and structure, multiple sites (principal); Z78.0 Asymptomatic menopausal state
CPT/HCPCS: 77080

== ENCOUNTER → 2025-03-06 15:04 | Outpatient (CLI) | payer BC, SELFPAY ==
--- NOTE | 2025-03-06 15:06 | DI.MG.S_ITS ---
MM screening mammo BI: 03/06/2025. BI-RADS: 2 CLINICAL: 59-year old female for bilateral screening mammogram. Tyrer-Cuzick lifetime risk of 6.3%. No personal or first-degree family history of breast cancer. PRIOR EXAMS 06/15/2021. MAMMOGRAPHY TECHNIQUE: 2D and 3D (tomosynthesis) digital mammographic views obtained, with additional images as needed for full coverage. Current study was also evaluated with a Computer Aided Detection (CAD) system. DENSITY C. The breasts are heterogeneously dense, which may obscure small masses. MAMMOGRAPHY FINDINGS Bilateral: Benign-appearing calcifications noted. There are no suspicious masses, calcifications, or other findings in the breast. IMPRESSION: * No evidence of malignancy with benign findings. RECOMMENDATIONS Bilateral * Annual screening mammography. OVERALL ASSESSMENT CATEGORY BI-RADS-2: Benign. The [employer] recommends annual screening mammography beginning at age 40 for women with average risk of breast cancer. ELECTRONICALLY SIGNED: Blaine Azevedo M.D. on 03/07/2025 at 11:59:55 AM PT Interpreting Station ID: [id number]
== END ==
PROVIDERS: PCP Family Medicine; Referring Provider Family Medicine; Visit Provider Family Medicine
DX: Z12.31 Encounter for screening mammogram for malignant neoplasm of breast (principal); R92.333 Mammographic heterogeneous density, bilateral breasts
CPT/HCPCS: 77063; 77067

== ENCOUNTER → 2025-08-27 09:00 | Outpatient (CLI) | payer BC, SELFPAY ==
[2025-08-27 09:35] LABS: Hemoglobin A1C% w Est Avg Glu 5.0 % (4.0-6.0)
[2025-08-27 09:38] LABS: Add Manual Diff / Slide Review NO; Hematocrit 42.6 % (36-46); Hemoglobin 14.5 g/dL (12.0-16.0); Lymphocytes Absolute Auto 1900 /uL (1100-4500); Mean Corpuscular HGB Conc 34.0 % (30-36); Mean Corpuscular Hemoglobin 30.9 PG (26-34); Mean Corpuscular Volume 90.8 fL (80-100); Platelet Count 238 X10^3/uL (150-400)
[2025-08-27 09:51] LABS: Alanine Aminotransferase 9 IU/L (<35); Albumin 4.1 g/dL (3.5-5.0); Albumin Globulin Ratio 1.3 (1.0-2.8); Alkaline Phosphatase 77 U/L (38-126); Blood Urea Nitrogen 17 mg/dL (7-17); Calcium 9.4 mg/dL (8.4-10.2); Carbon Dioxide 27 mmol/L (22-32); Chloride 104 mmol/L (98-107); Cholesterol 189 mg/dL (140-199); Estimated Glomerular Filt Rate > 60 mL/min (>60); Globulin 3.1 g/dL (1.7-4.1); Glucose 87 mg/dL (70-99); HDL Cholesterol 67 mg/dL (40-60); HEMOLYSIS < 15 (0-50); Potassium 4.4 mmol/L (3.4-5.1); Sodium 138 mmol/L (137-145); Total Protein 7.2 g/dL (6.3-8.2); Triglycerides 143 mg/dL (35-150)
[2025-08-27 10:21] LABS: TSH w/ Reflex to FT4 2.14 uIU/mL (0.47-4.68)
[2025-08-27 10:50] LABS: Microalbumi Creatinin Ratio Ur 12.0 ug/mg CR (<30)
== END ==
PROVIDERS: PCP Family Medicine; Referring Provider Family Medicine; Visit Provider Family Medicine
DX: G43.909 Migraine, unspecified, not intractable, without status migrainosus (principal); Z78.0 Asymptomatic menopausal state; M85.80 Other specified disorders of bone density and structure, unspecified site; Z13.1 Encounter for screening for diabetes mellitus
CPT/HCPCS: 36415; 80053; 80061; 82043; 82172; 82570; 83036; 84443; 85025

== ENCOUNTER → 2025-09-16 10:20 | Outpatient (CLI) | payer BC, SELFPAY ==
[2025-09-16 10:56] LABS: HEMOLYSIS < 15 (0-50); Iron 84 ug/dL (37-170)
[2025-09-16 11:07] LABS: Percent Iron Saturation 23 % (15-50); Total Iron Binding Capacity 367 ug/dL (265-497); Transferrin 305 mg/dL (206-381)
[2025-09-16 11:14] LABS: Vitamin D 25 Hydroxy (D3) 48.4 ng/mL (30.0-100.0)
[2025-09-16 11:33] LABS: Ferritin 18 ng/mL (11-264)
== END ==
PROVIDERS: PCP Family Medicine; Referring Provider Family Medicine; Visit Provider Family Medicine
DX: Z13.0 Encounter for screening for diseases of the blood and blood-forming organs and certain disorders involving the immune mechanism (principal)
CPT/HCPCS: 36415; 82306; 82728; 83540; 83550